=== PATIENT | male | born 1995 | race Caucasian/White ===

== ENCOUNTER 2019-11-25 03:53 | Observation (INO) | payer BC, OTHER ==
[2019-11-25 04:33] LABS: Absolute Neutrophil Ct (ANC) 4.65 (1.4-6.9); BASOPHIL % 0.2 % (0.0-0.4); Basophil (Absolute #) 0.02 (0-0.4); Eosinophil % 2.4 % (0.00-5.0); Eosinophil (Absolute #) 0.21 (0-0.5); Hematocrit 47.1 % (42-50); Hemoglobin 15.6 gm/dl (12.5-18.0); Lymphocyte (Absolute #) 3.11 (1.0-4.6); Lymphocytes % 35.5 % (24.0-44.0); Mean Cell Volume 89.2 fl (78-100); Mean Corpuscular Hemoglobin 29.5 pg (26-32); Mean Corpuscular Hgb Concent. 33.1 g/dl (32-36); Mean Platelet Volume 10.1 fl (7.5-11.0); Monocyte (Absolute #) 0.78 (0.0-1.3); Monocytes % 8.9 % (0.0-12.0); Platelet Count 152 K/mm3 (150-450); Red Blood Count 5.28 M/mm3 (4.1-5.6); Red Cell Distribution Width 13.4 % (11.5-14.0); White Blood Count 8.8 K/mm3 (4.0-10.5)
[2019-11-25 04:43] LABS: ALBUMIN 4.7 g/dL (3.5-5.0); ALKALINE PHOSPHATASE 85 U/L (38-126); ANION GAP 12.6 MEQ/L (5-15); BLOOD UREA NITROGEN 22 mg/dL (9-20); CHLORIDE 105 mmol/L (98-107); Calcium 9.7 mg/dL (8.4-10.2); Carbon Dioxide 27 mmol/L (22-30); Creatinine 1 1.03 mg/dL (0.66-1.25); Glucose 97 mg/dL (74-106); Potassium 3.5 mmol/L (3.5-5.1); SGOT/AST 38 U/L (17-59); SGPT/ALT 67 U/L (0-50); SODIUM 140 mmol/L (137-145); Total Protein 8.3 g/dL (6.3-8.2)
--- NOTE | 2019-11-25 05:34 | ERPHSYRPT ---
- History of Present Illness Time Seen by Provider: 11/25/19 04:07 Source: patient Exam Limitations: no limitations Patient Subjective Stated Complaint: Patient states " numbness started in left lower extremity then worked its way up to his left upper extremity then into left side of my face". Triage Nursing Assessment: Patient arrived to ER and ambulated to room per self with steady gait. Patient transfered self to bed without difficulty. Patient A/ O times 4. Patient able to answer questions appropriatley. Patient speech clear and understandable. No facial droop noted. 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 No drooling noted. Patient able to feel sensation to both feet, bilateral upper and lower extremities, and face. Patient stated he has more of tingling now then numbness. Patient denies SOB and chest pain. Patient does state he has some nausea. Patient denies vomiting. Bilateral hand die try out worker stamping strong and equal. Movement of bilateral lower extremities strong and WNL. Bilateral pupils reactive to light and brisk. Patient able to lift bialteral upper/lower extremities upon command without difficulty. Patient denies any HX of numbness. No drifts noted to upper/lower extremities. Patient with no difficulty with swallowing noted. Patient denies any new pain or discomfort. Physician History: 24 years old generally healthy right hand dominant male working at the [employer] presented in the ER with chief complaint of sudden onset left-sided numbness and tingling around 2:50 AM today while he was at work. It lasted for almost 20 minutes and started initially in the left lower extremity followed by the upper and involving face. Patient reports subjective weakness on the left side as well. After 20 minutes everything started to improve. Later on patient decided to come to the ER and his numbness is gone but has some tingly sensation in the hand and leg. No difficulty speech visual impairment are facial droop reported. Patient also reported having headaches off and on and had taken Pamprin this evening which improved. Denies having similar symptoms in the past. Time of Onset/Last Time Seen Normal: 0250 Timing/Duration: today, sudden, improved Severity: moderate Character of Deficits: altered sensation Deficits: no difficulties Baseline/Normal Cognition: alert 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 Current Cognition: alert 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 Baseline Gait: walks w/o assistance Associated Symptoms: numbness/tingling in legs/feet, paresthesia, headache Allergies/Adverse Reactions: codeine Adverse Reaction (Mild, Verified 11/25/19 04:28) Rash vancomycin Adverse Reaction (Mild, Verified 11/25/19 04:28) Rash Home Medications: No Reportable Medications [No Reported Medications] 11/25/19 [History] Hx Tetanus, Diphtheria Vaccination/Date Given: Yes Hx Influenza Vaccination/Date Given: No Hx Pneumococcal Vaccination/Date Given: No Immunizations Up to Date: Yes Travel Risk - International Travel Have you traveled outside of the country in past 3 weeks: No Have you or anyone close to you been diagnosed with or: No Do your reside in a community with a known COVID-19 case?: Yes If Yes where:: [facility] - Coronavirus Screening Has patient experienced Coronavirus symptoms: No - Review of Systems Constitutional: No Symptoms Eyes: No Symptoms Ears, Nose, & Throat: No Symptoms Respiratory: No Symptoms Cardiac: No Symptoms Abdominal/Gastrointestinal: No Symptoms Genitourinary Symptoms: No Symptoms Musculoskeletal: No Symptoms Skin: No Symptoms Neurological: Sensory Changes Psychological: No Symptoms Endocrine: No Symptoms Hematologic/Lymphatic: No Symptoms Immunological/Allergic: No Symptoms - Past Medical History Neurological History: No Pertinent History ENT History: No Pertinent History Cardiac History: No Pertinent History Respiratory History: No Pertinent History Endocrine Medical History: No Pertinent History Musculoskeletal History: No Pertinent History GI Medical History: No Pertinent History History: No Pertinent History Psycho-Social History: No Pertinent History Male Reproductive Disorders: No Pertinent History - Past Surgical History Past Surgical History: No Neuro Surgical History: No Pertinent History Cardiac: No Pertinent History Respiratory: No Pertinent History Gastrointestinal: No Pertinent History Genitourinary: No Pertinent History Musculoskeletal: No Pertinent History Male Surgical History: No Pertinent History - Social History Smoking Status: Former smoker Exposure to second hand smoke: No Drug Use: none Patient Lives Alone: No - Nursing Vital Signs Nursing Vital Signs: Initial Vital Signs Temperature 99.0 F 11/25/19 04:04 Pulse Rate 94 H 11/25/19 04:04 Respiratory Rate 18 11/25/19 04:04 Blood Pressure 153/89 11/25/19 04:04 O2 Sat by Pulse Oximetry 98 11/25/19 04:04 Pain Scale Pain Intensity 0 - Natalya Coma Scale Best Eye Response ([place]): (4) open spontaneously Best Verbal Response ([place]): (5) oriented Best Motor Response (Natalya): (6) obeys commands [place] Total: 15 - Physical Exam Eye Exam: bilateral eye: normal inspection, PERRL, EOMI Ears, Nose, Throat Exam: normal ENT inspection, TMs normal, pharynx normal, moist mucous membranes Neck Exam: normal inspection, non-tender, supple, full range of motion Respiratory: normal breath sounds, lungs clear Cardiovascular: regular rate/rhythm, normal heart sounds, normal peripheral pulses Gastrointestinal: soft, normal bowel sounds, No tenderness Back Exam: normal inspection, normal range of motion Extremity Exam: normal inspection, normal range of motion Mental Status: alert, 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, cooperative 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 Exam: normal hearing, normal speech, PERRL Coordination/Gait: normal finger to nose, normal gait, normal cerebellar function, negative Romberg's sign Motor/Sensory: no motor deficit DTR: bicep (R): 2+, bicep (L): 2+, knee (R): 2+, knee (L): 2+ Skin Exam: normal color SpO2 Interpretation: normal SpO2: 98 O2 Delivery: Room Air - Course Nursing assessment & vital signs reviewed: Yes EKG Interpreted by Me: RATE, Sinus Rhythm, Right [place] Deviation, Left Bundle Branch Block, Non-specific ST Changes Ordered Tests: Active Orders 24 hr Category Date Time Status Isolation, Initiate & Maintain Q4H Care 11/25/19 04:20 Active CHEST 1 VIEW (PORTABLE) Stat Exams 11/25/19 04:11 Taken HEAD WITHOUT CONTRAST [CT] Stat Exams 11/25/19 04:11 Taken MRI BRAIN W & W/O CONTRAST [MRI] Stat Exams 11/25/19 05:39 Ordered CBC W DIFF Stat Lab 11/25/19 04:15 Completed CMP Stat Lab 11/25/19 04:15 Completed TROPONIN Q3H Lab 11/25/19 04:15 Completed TROPONIN Q3H Lab 11/25/19 07:15 Ordered TROPONIN Q3H Lab 11/25/19 10:15 Ordered TROPONIN Q3H Lab 11/25/19 13:15 Ordered TROPONIN Q3H Lab 11/25/19 16:15 Ordered TROPONIN Q3H Lab 11/25/19 19:15 Ordered TROPONIN Q3H Lab 11/25/19 22:15 Ordered EKG STAT RT 11/25/19 04:53 Active Transfer Order Routine Transfer 11/25/19 Ordered Medication Summary Discontinued Medications Generic Name Dose Route Start Last Admin Trade Name Pallavi PRN Reason Stop Dose Admin Aspirin 324 mg 11/25/19 05:38 11/25/19 05:46 Ecotrin 81 Mg PO 11/25/19 05:39 324 mg 1XONLY ONE Administration Aspirin Confirm 11/25/19 05:45 Baby Aspirin 81 Mg Chew Administered 11/25/19 05:46 Dose 324 mg .ROUTE .STK-MED ONE Lab/Rad Data: Laboratory Result Diagrams 11/25/19 04:15 11/25/19 04:15 Laboratory Results 11/25/19 11/25/19 11/25/19 Range/Units 04:15 04:15 04:15 WBC 8.8 (4.0-10.5) K/mm3 RBC 5.28 (4.1-5.6) M/mm3 Hgb 15.6 (12.5-18.0) gm/dl Hct 47.1 (42-50) % MCV 89.2 (78-100) fl MCH 29.5 (26-32) pg MCHC 33.1 (32-36) g/dl RDW 13.4 (11.5-14.0) % Plt Count 152 (150-450) K/mm3 MPV 10.1 (7.5-11.0) fl Gran % 53.0 (36.0-66.0) % Eos # (Auto) 0.21 (0-0.5) Absolute Lymphs (auto) 3.11 (1.0-4.6) Absolute Monos (auto) 0.78 (0.0-1.3) Lymphocytes % 35.5 (24.0-44.0) % Monocytes % 8.9 (0.0-12.0) % Eosinophils % 2.4 (0.00-5.0) % Basophils % 0.2 (0.0-0.4) % Absolute Granulocytes 4.65 (1.4-6.9) Basophils # 0.02 (0-0.4) Sodium 140 (137-145) mmol/L Potassium 3.5 (3.5-5.1) mmol/L Chloride 105 (98-107) mmol/L Carbon Dioxide 27 (22-30) mmol/L Anion Gap 12.6 (5-15) MEQ/L BUN 22 H (9-20) mg/dL Creatinine 1.03 (0.66-1.25) mg/dL Estimated GFR > 60.0 ML/MIN Glucose 97 (74-106) mg/dL Calcium 9.7 (8.4-10.2) mg/dL Total Bilirubin 0.50 (0.2-1.3) mg/dL AST 38 (17-59) U/L ALT 67 H (0-50) U/L Alkaline Phosphatase 85 (38-126) U/L Troponin I < 0.012 (0.000-0.034) ng/mL Serum Total Protein 8.3 H (6.3-8.2) g/dL Albumin 4.7 (3.5-5.0) g/dL - Progress Progress: improved, re-examined Progress Note: 24 years old is evaluated for left-sided and sudden onset numbness which is much improved now. Patient have some tingling sensation on the left and. No weakness at all. I have obtained CT head which is negative. Grossly unremarkable chemistries and EKG showed normal sinus rhythm with no arrhythmias. I have obtained specialist reservations agent telemetry neurology consult, recommended MRI with and without contrast to rule out stroke or any other causes like multiple sclerosis etc. Patient would be admitted to hospital. Discussed with patient who understand and agrees with it. He is given aspirin. 11/25/19 05:54 11/25/19 06:[address] Bravo and patient is being admitted for observation. Discussed with : Joshua Will see patient in: hospital (observation) Counseled pt/family regarding: lab results, diagnosis, rad results - Departure Departure Disposition: Observation Clinical Impression: Numbness on left side Condition: Stable Critical Care Time: No Referrals: DOCTOR,NO FAMILY [Primary Care Provider] -
[2019-11-25] MEDS ORDERED: ECOTRIN 81 MG PO ONE (05:38)
[2019-11-25] MEDS ORDERED: BABY ASPIRIN 81 MG CHEW ONE (05:45)
--- NOTE | 2019-11-25 08:14 | XRAY ---
Indication: Facial and extremity numbness. Comparison: November 14, 2019. Portable chest again demonstrates normal heart and lungs with incidental calcified granulomas. No new/acute findings.
--- NOTE | 2019-11-25 08:16 | XRAY ---
Indication: Headache and nausea. Left face and left extremity numbness/tingling. Multiple contiguous axial images obtained through the head without contrast. Comparison: None Normal appearing brain parenchyma, ventricles, and bony calvarium. Visualized paranasal sinuses and mastoid air cells are clear. Impression: Normal CT head without contrast exam. Comment: Preliminary interpretation was made by [facility]. No critical discrepancy.
--- NOTE | 2019-11-25 08:31 | XRAY ---
Indication: Left-sided numbness. Sagittal, coronal, and axial MRI brain was performed using pre-and post T1, T2, FLAIR, diffusion, and ADC sequences. 20 cc Dotarem contrast used. Comparison: None Ventriculosulcal pattern appears symmetric. No acute intracranial hemorrhage, abnormal extra-axial fluid collection, or mass effect. Diffusion images negative for restricted signal. Following gadolinium, there is no abnormal enhancing intra or extra-axial mass. Fourth ventricle is midline without hydrocephalus. 7/8 cranial nerve complex bilaterally symmetric. Normal flow void signal within the major intracerebral circulation. Normal appearing craniocervical junction and sella turcica. Moderate right maxillary and mild left maxillary sinus mucosal thickening. Impression: Bilaterally maxillary sinus disease. Remaining MRI brain with contrast exam is negative.
[2019-11-25 09:13] VITALS: O2SAT 97
--- NOTE | 2019-11-25 09:31 | PCM.HP ---
History of Present Illness - Chief Complaint Chief Complaint: left sided numbness History of Present Illness: is a 24 year old male, healthy, who came to ER c/o L sided numbness and weakness. It started just before 3 am (pt works at [employer], at the [employer]) with numbness in his L leg, which traveled up to his chest (with chest tightness ) and L arm then his face. He felt he had a facial droop, but no trouble speaking. The leg felt weak and he had trouble using his L hand. This lasted until about 4 am, by which time he was in the ER. Currently he feels "fine." Teleneurology consult was done and they recommended MRI brain with and without gadolinium, which was negative for CVA. They also recommended swallow study, fasting lipids, and telemetry. We will rule out CO as well. His maternal grandfather had an CO, otherwise FHx is neg. He does chew Tobacco daily, taking about 1 week to use 1 can. He smokes occasionally. Drinks when he is not working, usually beer but may have a drink of whiskey occasionally. Denies any drug use. - Review of Systems Constitutional: Weakness Respiratory: Cough (cough and SOB about 1 mo, tested neg for COVID and neg resp panel per pt, neg CXR x 2, and now these sx are improved), Short Of Breath Neurological: Dizziness (during episode this morning), Focal Weakness, Parasthesia Psychological: No Anxiety, No Depression, No Suicidal Ideations, No Homicidal Ideations All Other Systems: Reviewed and Negative Medications & Allergies Home Medications: Home Medication List No Reportable Medications [No Reported Medications] 11/25/19 [History Confirmed 11/25/19] Allergies/Adverse Reactions: Allergies Allergy/AdvReac Type Severity Reaction Status Date / Time codeine AdvReac Mild Rash Verified 11/25/19 04:28 vancomycin AdvReac Mild Rash Verified 11/25/19 04:28 - Past Medical History Neurological History: No Pertinent History ENT History: No Pertinent History Cardiac History: No Pertinent History Respiratory History: No Pertinent History Endocrine Medical History: No Pertinent History Musculoskelatal History: No Pertinent History GI Medical History: No Pertinent History History: No Pertinent History Pyscho-Social History: No Pertinent History Male Reproductive Disorders: No Pertinent History - Past Surgical History Past Surgical History: No Neuro Surgical History: No Pertinent History Cardiac History: No Pertinent History Respiratory Surgery: No Pertinent History GI Surgical History: No Pertinent History Genitourinary Surgical Hx: No Pertinent History Musculskeletal Surgical Hx: No Pertinent History Male Surgical History: No Pertinent History - Social History Smoking Status: Former smoker Exposure to second hand smoke: No Alcohol: Weekly Drug Use: none - Physical Exam Vital Signs: Vital Signs - 24 hr Temp Pulse Resp BP Pulse Ox 11/25/19 09:03 97 11/25/19 07:07 78 16 126/84 98 11/25/19 06:39 98 11/25/19 06:18 85 17 111/86 97 11/25/19 05:07 75 18 127/84 98 11/25/19 04:04 99.0 F 94 H 18 153/89 98 General Appearance: no apparent distress, alert Neurologic Exam: 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, cooperative, heel seat trimmer II-XII nml as tested, other (LE sensation intact to light touch bilat, throughout. good dorsiflexion and plantar flexion. 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.) Eye Exam: PERRL/EOMI, eyes nml inspection, No scleral icterus Ears, Nose, Throat Exam: pharynx normal, moist mucous membranes, No pharyngeal erythema Neck Exam: normal inspection, non-tender, No lymphadenopathy Respiratory Exam: normal breath sounds, lungs clear, No crackles/rales, No rhonchi, No wheezing Cardiovascular Exam: regular rate/rhythm, normal heart sounds, No murmur Gastrointestinal/Abdomen Exam: soft, normal bowel sounds Back Exam: normal inspection, No rash Extremity Exam: normal inspection, No pedal edema, No swelling Skin Exam: normal color, warm, dry, No rash Results - Labs Lab/Micro Results: Lab Results-Last 24 Hours 11/25/19 11/25/19 11/25/19 Range/Units 04:15 04:15 04:15 WBC 8.8 (4.0-10.5) K/mm3 RBC 5.28 (4.1-5.6) M/mm3 Hgb 15.6 (12.5-18.0) gm/dl Hct 47.1 (42-50) % MCV 89.2 (78-100) fl MCH 29.5 (26-32) pg MCHC 33.1 (32-36) g/dl RDW 13.4 (11.5-14.0) % Plt Count 152 (150-450) K/mm3 MPV 10.1 (7.5-11.0) fl Gran % 53.0 (36.0-66.0) % Eos # (Auto) 0.21 (0-0.5) Absolute Lymphs (auto) 3.11 (1.0-4.6) Absolute Monos (auto) 0.78 (0.0-1.3) Lymphocytes % 35.5 (24.0-44.0) % Monocytes % 8.9 (0.0-12.0) % Eosinophils % 2.4 (0.00-5.0) % Basophils % 0.2 (0.0-0.4) % Absolute Granulocytes 4.65 (1.4-6.9) Basophils # 0.02 (0-0.4) Sodium 140 (137-145) mmol/L Potassium 3.5 (3.5-5.1) mmol/L Chloride 105 (98-107) mmol/L Carbon Dioxide 27 (22-30) mmol/L Anion Gap 12.6 (5-15) MEQ/L BUN 22 H (9-20) mg/dL Creatinine 1.03 (0.66-1.25) mg/dL Estimated GFR > 60.0 ML/MIN Glucose 97 (74-106) mg/dL Calcium 9.7 (8.4-10.2) mg/dL Total Bilirubin 0.50 (0.2-1.3) mg/dL AST 38 (17-59) U/L ALT 67 H (0-50) U/L Alkaline Phosphatase 85 (38-126) U/L Troponin I < 0.012 (0.000-0.034) ng/mL Serum Total Protein 8.3 H (6.3-8.2) g/dL Albumin 4.7 (3.5-5.0) g/dL - Radiology Impressions Radiology Exams & Impressions: Radiology Procedures Category Date Time Status CHEST 1 VIEW (PORTABLE) Stat Exams 11/25/19 04:11 Completed HEAD WITHOUT CONTRAST [CT] Stat Exams 11/25/19 04:11 Completed MRI BRAIN W & W/O CONTRAST [MRI] Stat Exams 11/25/19 05:39 Completed Assessment/Plan (1) Numbness on left side Current Visit: Yes Status: Acute Assessment & Plan: Unsure the etiology. MRI was neg for CVA, but will go ahead with swallow study as he had some sx of mouth droop initially. Will check fasting lipids and keep pt on telemetry while here. 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 Code(s): R20.0 - ANESTHESIA OF SKIN (2) Chest pain Current Visit: Yes Status: Acute Qualifiers: Chest pain type: other chest pain Qualified Code(s): R07.89 - Other chest pain; R07.8 - Other chest pain Assessment & Plan: unlikely to be cardiac but will rule out with troponins. Code(s): R07.9 - CHEST PAIN, UNSPECIFIED
[2019-11-25] MEDS ORDERED: ENOXAPARIN SODIUM SQ SCH (10:00)
[2019-11-25 10:07] LABS: Risk Ratio 6.8
--- NOTE | 2019-11-25 13:16 | XRAY ---
Indication: Dysphasia. Modified barium swallow study was performed by the Department of speech therapy with fluoroscopic assistance provided. Patient ingested multiple consistencies of liquids and solids. Full report and recommendations will be reported separately. Approximately 36 seconds fluoroscopy used.
[2019-11-25 16:19] VITALS: BP 114/65; PULSE 75
== END 2019-11-25 16:36 | disposition home or self-care (01) ==
LOC: ED 03:53 → MED SURG 08:47
PROVIDERS: ADMIT Family Medicine; ATTEND Family Medicine
DX: R20.0 Anesthesia of skin (principal); R07.9 Chest pain, unspecified; R53.1 Weakness; R42 Dizziness and giddiness
CPT/HCPCS: 36000; 36415; 70450; 70553; 71045; 74230; 80053; 80061; 83721; 84484; 85025; 93268; 99285; J1650; Q3014; A9270-GY; G0378

== ENCOUNTER 2019-12-02 00:23 | Emergency (ER) | payer BC ==
[2019-12-02] MEDS ORDERED: TORAdol 30 mg Injection IV ONE (00:58)
[2019-12-02] MEDS ORDERED: Compazine 10 MG/2 ML IV ONE (00:59)
[2019-12-02] MEDS ORDERED: BENADRYL 50 MG/ML IV ONE (01:00)
[2019-12-02] MEDS ORDERED: BENADRYL 50 MG/ML ONE (01:03)
[2019-12-02] MEDS ORDERED: TORAdol 30 mg Injection ONE (01:03)
[2019-12-02] MEDS ORDERED: Compazine 10 MG/2 ML ONE (01:03)
--- NOTE | 2019-12-02 01:05 | ERPHSYRPT ---
- History of Present Illness Time Seen by Provider: 12/02/19 00:39 Source: patient Exam Limitations: no limitations Patient Subjective Stated Complaint: pt states he has had a headache for over a week. states he has been seen here and at [facility] with little improvement Triage Nursing Assessment: pt alert and oriented, answers questions approp. pt ambulatory with steady gait to room noted. respirations nonlabored with lungs cta. skin warm and dry. no facial droop noted. bilat upper and lower ext strength equal and wnl. Physician History: 24 yo wm w L frontal WOOD x 8days. Pt has been worked up/admitted at [facility] for same complaint w neg CT head/neg MRI brain/full neuro consult. He has also be seen in ER at [facility] for same complaint. Pain is 10 on scale/throbbing/worse w bright lights. He has had N/V but denies fever/focal weakness/chest pain/dyspnea /trauma. Timing/Duration: other (8 days) Quality: other (throbbing) Head Pain Location: frontal Severity of Pain-Max: severe Severity of Pain-Current: severe Recent Head Trauma: no recent headache/trauma, occasional headaches Modifying Factors: Improves With: exposure to light Associated Symptoms: nausea/vomiting, sensitive to light, No denies symptoms, No confusion, No dizziness, No fatigue, No facial pain, No fever/chills, No flushing, No light-headedness, No loss of consciousness, No nasal congestion, No nasal drainage, No neck pain, No numbness in legs/feet, No rash, No sweating , No scotoma, No seizures, No sinus infection, No speech problems, No stiff neck , No trouble walking, No vision changes, No visual disturbance, No weakness Previous symptoms: same symptoms as today, recent hospitalization Allergies/Adverse Reactions: codeine Adverse Reaction (Mild, Verified 11/25/19 04:28) Rash vancomycin Adverse Reaction (Mild, Verified 11/25/19 04:28) Rash Home Medications: Cyclobenzaprine HCl [Flexeril] 10 mg PO Q8HPRN PRN 12/02/19 [History] Methylprednisolone 4 mg [Medrol 4 mg] 4 mg PO UD 12/02/19 [History] Hx Tetanus, Diphtheria Vaccination/Date Given: Yes Hx Influenza Vaccination/Date Given: No Hx Pneumococcal Vaccination/Date Given: No Immunizations Up to Date: Yes Travel Risk - International Travel If Yes where:: [place] - Coronavirus Screening Has patient experienced Coronavirus symptoms: Yes Symptoms experienced: severe headache - Review of Systems Constitutional: No Symptoms Eyes: Photophobia, No Discharge, No Eye Pain, No Eye Redness, No Itchy, No Tearing, No Vision Changes, No Double Vision, No Foreign Body Sensation Ears, Nose, & Throat: No Symptoms Respiratory: No Symptoms Cardiac: No Symptoms Abdominal/Gastrointestinal: No Symptoms Genitourinary Symptoms: No Symptoms Musculoskeletal: No Symptoms Skin: No Symptoms Neurological: Headache, No Dizziness, No Focal Weakness, No Gait Changes, No Irritability, No Lethargy, No Paralysis, No Parasthesia, No Seizure, No Sensory Changes, No Speech Changes, No Tics, No Tremors, No Vertigo Psychological: No Symptoms Endocrine: No Symptoms Hematologic/Lymphatic: No Symptoms Immunological/Allergic: No Symptoms - Past Medical History Pertinent Past Medical History: No Neurological History: No Pertinent History ENT History: No Pertinent History Cardiac History: No Pertinent History Respiratory History: No Pertinent History Endocrine Medical History: No Pertinent History Musculoskeletal History: No Pertinent History GI Medical History: No Pertinent History History: No Pertinent History Psycho-Social History: No Pertinent History Male Reproductive Disorders: No Pertinent History - Past Surgical History Past Surgical History: Yes Neuro Surgical History: No Pertinent History Cardiac: No Pertinent History Respiratory: No Pertinent History Gastrointestinal: No Pertinent History Genitourinary: No Pertinent History Musculoskeletal: No Pertinent History Male Surgical History: No Pertinent History Other Surgical History: grastroescesis - Social History Smoking Status: Former smoker Exposure to second hand smoke: No Drug Use: none Patient Lives Alone: No Significant Family History: no pertinent family hx - Nursing Vital Signs Nursing Vital Signs: Initial Vital Signs Pulse Rate 91 H 12/02/19 00:32 Respiratory Rate 18 12/02/19 00:32 Blood Pressure 147/106 12/02/19 00:32 O2 Sat by Pulse Oximetry 100 12/02/19 00:32 Pain Scale Pain Intensity 6 - Physical Exam General Appearance: no apparent distress, other (In pain) Eye Exam: PERRL/EOMI, eyes nml inspection, photophobia Ears, Nose, Throat Exam: normal ENT inspection, TMs normal, pharynx normal, moist mucous membranes Neck Exam: normal inspection, non-tender, supple, full range of motion, No meningismus, No mass, No Brudzinski, No Kernig's, No carotid bruit, No JVD Respiratory Exam: normal breath sounds, lungs clear, airway intact, No respiratory distress Cardiovascular Exam: regular rate/rhythm, No murmur, No friction rub, No gallop , No tachycardia Gastrointestinal/Abdominal Exam: soft, normal bowel sounds, No tenderness Back Exam: normal inspection, normal range of motion, No CVA tenderness Extremity Exam: normal inspection, normal range of motion 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, 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, 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: normal hearing, normal speech, PERRL Coordination/Gait Exam: normal finger to nose, normal cerebellar function Motor/Sensory Exam: no motor deficit, no sensory deficit, no pronator drift, negative Babinski's sign DTR Exam: bicep (R): 2+, bicep (L): 2+, tricep (R): 2+, tricep (L): 2+, knee (R) : 2+, knee (L): 2+ Skin Exam: normal color, warm, dry Lymphatic Exam: No adenopathy SpO2 Interpretation: normal SpO2: 100 O2 Delivery: Room Air - Course Nursing assessment & vital signs reviewed: Yes Ordered Tests: Active Orders 24 hr Category Date Time Status Isolation, Initiate & Maintain Q12H Care 12/02/19 00:49 Active Medication Summary Discontinued Medications Generic Name Dose Route Start Last Admin Trade Name Bartq PRN Reason Stop Dose Admin Diphenhydramine HCl 25 mg 12/02/19 01:00 12/02/19 01:08 Benadryl 50 Mg/Ml IV 12/02/19 01:01 25 mg STAT ONE Administration Diphenhydramine HCl Confirm 12/02/19 01:03 Benadryl 50 Mg/Ml Administered 12/02/19 01:04 Dose 50 mg .ROUTE .STK-MED ONE Ketorolac Tromethamine 15 mg 12/02/19 00:58 12/02/19 01:07 Toradol 30 Mg Injection IV 12/02/19 00:59 15 mg STAT ONE Administration Ketorolac Tromethamine Confirm 12/02/19 01:03 Toradol 30 Mg Injection Administered 12/02/19 01:04 Dose 30 mg .ROUTE .STK-MED ONE Prochlorperazine Edisylate 10 mg 12/02/19 00:59 12/02/19 01:08 Compazine 10 Mg/2 Ml IV 12/02/19 01:00 10 mg STAT ONE Administration Prochlorperazine Edisylate Confirm 12/02/19 01:03 Compazine 10 Mg/2 Ml Administered 12/02/19 01:04 Dose 10 mg .ROUTE .STK-MED ONE - Progress Progress Note: 12/02/19 01:09 15mg IV toradol/25mg IV benadryl/10mg IV compazine 12/02/19 01:25 Pt's pain improved after IV toradol/benadryl/compazine. Chart reviewed-CT head neg/MRI brain w maxillary mucosal thickening B 12/02/19 01:40 Pt's pain greatly improved. Blood Culture(s) Obtained: No Antibiotics given: No - Departure Departure Disposition: Home Clinical Impression: Migraine Condition: Stable Critical Care Time: No Referrals: DOCTOR,NO FAMILY [Primary Care Provider] - Additional Instructions: Follow up with your family MD or neurologist next week Return to Er for increasing pain/focal weakness/temperature greater than 100.5
[2019-12-02 01:43] VITALS: O2SAT 100
[2019-12-02 01:48] VITALS: BP 136/87; PULSE 61
== END 2019-12-02 01:54 | disposition home or self-care (01) ==
LOC: ED 00:23
DX: G43.909 Migraine, unspecified, not intractable, without status migrainosus (principal)
CPT/HCPCS: 36000; 96374; 96375; 99284; J1200; J1885

== ENCOUNTER 2019-12-02 10:22 | Observation (INO) | payer BC ==
[2019-12-02] MEDS ORDERED: Norco 10/325 MG Tablet PO PRN (11:21)
[2019-12-02] MEDS ORDERED: MORPHINE SULFATE 10 MG/ML IV PRN (11:21)
[2019-12-02] MEDS ORDERED: Zofran 4 MG/2 ML VIAL IV PRN (11:22)
[2019-12-02 11:56] LABS: Absolute Neutrophil Ct (ANC) 5.54 (1.4-6.9); BASOPHIL % 0.2 % (0.0-0.4); Basophil (Absolute #) 0.02 (0-0.4); Eosinophil % 0.8 % (0.00-5.0); Eosinophil (Absolute #) 0.08 (0-0.5); Hematocrit 47.3 % (42-50); Hemoglobin 15.6 gm/dl (12.5-18.0); Lymphocyte (Absolute #) 3.23 (1.0-4.6); Lymphocytes % 32.8 % (24.0-44.0); Mean Cell Volume 88.4 fl (78-100); Mean Corpuscular Hemoglobin 29.2 pg (26-32); Monocyte (Absolute #) 0.98 (0.0-1.3); Monocytes % 9.9 % (0.0-12.0); Neutrophil % 56.3 % (36.0-66.0); Platelet Count 190 K/mm3 (150-450); Red Blood Count 5.35 M/mm3 (4.1-5.6); Red Cell Distribution Width 13.7 % (11.5-14.0); White Blood Count 9.9 K/mm3 (4.0-10.5)
[2019-12-02] MEDS ORDERED: Sodium Chloride 0.9% 1000 ML 1,000 ML IV SCH (12:15)
[2019-12-02 12:48] LABS: CSF GLUCOSE 60 mg/dL (40-70); CSF PROTEIN 99 mg/dL (12-60)
[2019-12-02 13:12] LABS: ALBUMIN 4.5 g/dL (3.5-5.0); ALKALINE PHOSPHATASE 68 U/L (38-126); ANION GAP 12.6 MEQ/L (5-15); BLOOD UREA NITROGEN 15 mg/dL (9-20); CHLORIDE 107 mmol/L (98-107); Calcium 9.4 mg/dL (8.4-10.2); Carbon Dioxide 27 mmol/L (22-30); Folate (Folic Acid) 7.95 ng/mL (2.76 - >20); Glucose 95 mg/dL (74-106); Potassium 4.1 mmol/L (3.5-5.1); SGOT/AST 21 U/L (17-59); SGPT/ALT 28 U/L (0-50); SODIUM 143 mmol/L (137-145); Total Protein 7.9 g/dL (6.3-8.2); Vitamin B12 342 pg/mL (239-931)
[2019-12-02 13:40] LABS: CSF CLARITY CLEAR; CSF COLOR COLORLESS; CSF RBCS 29 CU. MM (0-2); CSF WBCS 207 CU. MM (0-6)
--- NOTE | 2019-12-02 14:32 | XRAY ---
Indication: Headache and paresthesia. Two-dimensional sonogram and color Doppler imaging of the carotid arteries of the neck performed. Comparison: None Examination of the right neck demonstrates visualized common carotid, bulb, internal carotid, and external carotid arteries to be widely patent. PSV of the CCA is 117 cm/s. PSV of the ICA is 100 cm/s. ICA/CCA ratio is 0.8. Normal antegrade vertebral artery flow. Examination of the left neck also demonstrates widely patent common carotid, bulb, internal carotid, and external carotid arteries. PSV of the CCA is 117 cm/s. PSV of the ICA is 10 4 cm/s. ICA/CCA ratio is 0.9. Normal antegrade vertebral artery flow. Impression: Carotid arteries of the neck widely patent bilaterally. Velocity measurements and ratios are also negative for hemodynamically significant flow-limiting stenosis.
[2019-12-02 14:41] LABS: Appearance CLEAR (CLEAR); Bilirubin NEGATIVE (NEGATIVE); Blood NEGATIVE Ery/ul (0-5); Glucose NEGATIVE (NEGATIVE); Ketones NEGATIVE (NEGATIVE); Leukocyte Esterase NEGATIVE (NEGATIVE); Mucus SLIGHT /HPF (NEGATIVE); Nitrite NEGATIVE (NEGATIVE); Protein,Urine Dip NEGATIVE (Negative); RBC 0-2 /HPF (0-2); Specific Gravity 1.031 (1.005-1.025); Urobilinogen 2 mg/dL (0-1)
[2019-12-02 14:50] LABS: CSF LYMPHS 97 % (40-80); CSF MONOS 2 % (15-45)
[2019-12-02 14:51] LABS: CSF NEUTROPHIL 1 % (0-6)
[2019-12-02] MEDS ORDERED: ROCEPHIN 1 Gm-D5w 50 ml Bag** 1 G/50 ML IVPB IV SCH (22:00)
[2019-12-02] MEDS: DEXTROSE IV SCH ×2 (22:30→23:16)
[2019-12-02] MEDS: WATER IV SCH ×2 (22:30→23:16)
[2019-12-02] MEDS: ZOVIRAX IV SCH ×2 (22:30→23:16)
[2019-12-02] MEDS ORDERED: Zovirax INJ IV SCH (23:00)
[2019-12-03] MEDS: DEXTROSE IV SCH ×3 (07:19→21:24)
[2019-12-03] MEDS: ZOVIRAX IV SCH ×3 (07:19→21:24)
[2019-12-03] MEDS: WATER IV SCH ×3 (07:19→21:24)
[2019-12-03 11:21] LABS: C-Reactive Protein High Sens. 3.42 mg/L (0.00-3.00)
--- NOTE | 2019-12-03 11:33 | XRAY ---
Indication: Right-sided headache and left-sided numbness. Sagittal, coronal, and axial MRI brain was performed using pre and post T1, T2, FLAIR, diffusion, and ADC sequences. 20 cc Dotarem contrast used. Comparison: November 25, 2019. Again no acute intracranial hemorrhage, abnormal extra-axial fluid collection, or mass effect. Diffusion images remain negative for restricted signal. Following gadolinium, there is again no abnormal enhancing intra or extra-axial mass. Fourth ventricle is midline without hydrocephalus. 7/8 cranial nerve complex bilaterally symmetric. Normal flow void signal within the major intracerebral circulation. Normal craniocervical junction and sella turcica. Stable maxillary sinus mucosal thickening again right greater than left. Impression: Continued negative MRI brain with contrast exam again with incidental paranasal sinus disease.
[2019-12-03] MEDS ORDERED: ROCEPHIN 1 Gm-D5w 50 ml Bag** 1 G/50 ML IVPB IV SCH (22:00)
--- NOTE | 2019-12-03 22:02 | PCM.HP ---
History of Present Illness - Chief Complaint Chief Complaint: heachache, paresthesias Date: 12/03/19 History of Present Illness: is a 24 year old male that was direct admitted to hospital for evaluation of headache and parasthesias. Patient reports that about a week ago he started having headaches, photophobia, parasthesias and heavy feeling in his extremities. Patient reports that he was running a low grade fever at times. He was tested twice for covid and found to be negative. Patient reports that he has not had any of these symptoms prior to a week ago. He reports that since he was admitted to the hospital and started on oxygen his headache has gone away. Patient reports that he does feel somewhat better but still feels that his extremities feel heavy. Patient denies any nausea or vomiting abdominal pain SOB chest pain or cough. Patient denies any other reported symptoms. Patient takes no medications. - Review of Systems All Other Systems: Reviewed and Negative (Except what was listed in HPI) Medications & Allergies Home Medications: Home Medication List Acyclovir 400 mg PO TID 10 Days #30 tablet 12/04/19 [Rx] Cefdinir 300 mg PO 12 9 Days #18 capsule 12/04/19 [Rx] Allergies/Adverse Reactions: Allergies Allergy/AdvReac Type Severity Reaction Status Date / Time codeine AdvReac Mild Rash Verified 11/25/19 04:28 vancomycin AdvReac Mild Rash Verified 11/25/19 04:28 - Past Medical History Past Medical History: No Neurological History: No Pertinent History ENT History: No Pertinent History Cardiac History: No Pertinent History Respiratory History: No Pertinent History Endocrine Medical History: No Pertinent History Musculoskelatal History: No Pertinent History GI Medical History: Other History: No Pertinent History Pyscho-Social History: No Pertinent History Male Reproductive Disorders: No Pertinent History 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 - Past Surgical History Past Surgical History: Yes Neuro Surgical History: No Pertinent History Cardiac History: No Pertinent History Respiratory Surgery: No Pertinent History GI Surgical History: Other Genitourinary Surgical Hx: No Pertinent History Musculskeletal Surgical Hx: No Pertinent History Male Surgical History: No Pertinent History Other Surgical History: put intestine in abdomen, also another surgery to remove scar tissue - Social History Smoking Status: Former smoker How long have you smoked: 2 years Exposure to second hand smoke: Yes Alcohol: None Drug Use: none Significant Family History: no pertinent family hx - Physical Exam Vital Signs: Vital Signs - 24 hr Temp Pulse Resp BP Pulse Ox 12/03/19 16:00 98.2 F 103 H 16 126/87 96 12/03/19 12:00 96.6 F 65 18 126/82 98 12/03/19 08:00 96.2 F 79 16 115/65 96 12/03/19 04:00 97.0 F 84 18 134/84 94 L 12/02/19 23:51 97.7 F 76 16 125/73 96 General Appearance: other (Patient was in a dark room resting with the lights off.) Neurologic Exam: alert, 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, 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, 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, normal mood/affect, No motor deficits, No uncooperative, No motor weakness, No facial droop, No slurred speech Eye Exam: eyes nml inspection Ears, Nose, Throat Exam: moist mucous membranes Neck Exam: other (Pain with flexion), No Brudzinski, No Kernig's Respiratory Exam: normal breath sounds, No lungs clear, No respiratory distress , No diminished breath sounds, No crackles/rales, No rhonchi, No wheezing Cardiovascular Exam: regular rate/rhythm, normal heart sounds, No murmur, No friction rub, No gallop, No tachycardia, No bradycardia, No irregular Gastrointestinal/Abdomen Exam: soft, normal bowel sounds, No tenderness, No distention Rectal Exam: deferred Extremity Exam: normal inspection Skin Exam: normal color, warm, dry, No rash Results - Labs Lab/Micro Results: Lab Results-Last 24 Hours 12/02/19 12/02/19 Range/Units 05:10 11:51 ESR 2 (0-15) mm/hr C-React Prot High Sens 3.42 H (0.00-3.00) mg/L RPR w/Rflx to Titer Pending Microbiology 12/02/19 12:28 Gram Stain - Final Cerebral Spinal Fluid CSF Culture - Preliminary NO GROWTH TO DATE 12/02/19 13:59 Urine Culture - Preliminary Urine, Void NO GROWTH TO DATE - Radiology Impressions Radiology Exams & Impressions: Radiology Procedures Category Date Time Status CAROTID BILATERAL [US] Routine Exams 12/02/19 11:16 Completed MRI BRAIN W & W/O CONTRAST [MRI] Routine Exams 12/03/19 10:33 Completed Assessment/Plan (1) Aseptic meningitis Status: Acute Assessment & Plan: CSF indicated patient had a viral meningitis. Neuro consult recommended MRI to re-evaluate sinuses for possible abscess development, mosquito borne illness panel, HIV and to start patient on acyclovir. Patient was placed in droplet precautions. There is no clear etiology as to the cause will await rest of CSF results and address as necessary Code(s): G03.0 - NONPYOGENIC MENINGITIS (2) Migraine Status: Acute Assessment & Plan: Patient's migraine symptoms had mostly resolved. The headache improved after oxygen. Patient was still mildly sensitive to light. Will continue to monitor for symptoms and treat if necessary Code(s): G43.909 - MIGRAINE, UNSP, NOT INTRACTABLE, WITHOUT STATUS MIGRAINOSUS (3) Numbness on left side Status: Acute Code(s): R20.0 - ANESTHESIA OF SKIN (4) Sinus infection Status: Acute Assessment & Plan: Will start on antibiotics for sinusitis Code(s): J32.9 - CHRONIC SINUSITIS, UNSPECIFIED
[2019-12-04] MEDS: ZOVIRAX IV SCH (06:06)
[2019-12-04] MEDS: DEXTROSE IV SCH (06:06)
[2019-12-04] MEDS: WATER IV SCH (06:06)
[2019-12-04 07:43] VITALS: O2SAT 97
[2019-12-04 11:14] LABS: RPR Screen Non Reactive (Non Reactive)
--- NOTE | 2019-12-04 13:58 | PCM.DS ---
Discharge Summary Date of Admission: 12/02/19 11:16 Date of Discharge: 12/04/19 Admitting Physician: LIZZETH OLGUIN Consults: Consults on Case 12/02/19 11:31 Consult Neurology ROUTINE Primary Care Provider: LIZZETH OLGUIN Allergies Allergies codeine Adverse Reaction (Mild, Verified 11/25/19 04:28) Rash vancomycin Adverse Reaction (Mild, Verified 11/25/19 04:28) Rash Hospital Summary - Hospital Course Hospital Course: 24 year old male was direct admitted to hospital due to WOOD, parasthesias and not feeling well. Patient had been evaluated at the ER x2 and admitted to the hospital once before but all of his imaging and labs had been negative for any specific pathology. Patient was admitted to the med/surg unit and LP was ordered and performed. Routine labs were collected. MRI performed neuro consult performed and patient was placed on oxygen for his WOOD. Patient was found to have an aseptic meningitis via CSF. He was noted to have a sinus infection on initial MRI and neurologist recommended repeat MRI to make sure there was not any abscess that formed. Patient did initially report symptoms of limb heaviness and had a WOOD the first day but following oxygen treatment he no longer had any other HAs. Patient also has had other symptom improvement including photophobia and limb heaviness. Patient feels better and would like to go home. Additional labs were ordered per Neurologist's recs and will continue to address results as necessary. Neurology recommended tx with acyclovir and patient was started on that in the hospital. We will transition to PO form. Patient was started on antibiotics for sinus infection and we will continue those outpatient to complete the course. Patient will be able to take Tylenol and Motrin for WOOD. Patient can follow up in clinic next week but was instructed that if his symptoms return he should go to ER. - Vitals & Intake/Output Vital Signs: Vital Signs Temperature 96.6 F 12/04/19 08:00 Pulse Rate 83 12/04/19 08:00 Respiratory Rate 16 12/04/19 08:00 Blood Pressure 132/71 12/04/19 08:00 O2 Sat by Pulse Oximetry 97 12/04/19 08:00 Intake & Output: Intake & Output 12/02/19 12/03/19 12/04/19 12/05/19 11:59 11:59 11:59 11:59 Intake Total 2520 1385 Output Total 500 Balance 2019 138 Weight 121.1 kg - Lab Result Diagrams: 12/02/19 11:51 12/02/19 11:51 Lab Results-Last 24 Hrs: Lab Results-Last 24 Hours 12/02/19 12/02/19 Range/Units 05:10 11:51 RPR w/Rflx to Titer Non Reactive (Non Reactive) HIV Ag/Ab Interpret See Result Note: HIV 1&2 Antigen & Ab Non Reactive (Non Reactive) Micro Results-Entire Visit: Microbiology 12/02/19 12:28 Gram Stain - Final Cerebral Spinal Fluid CSF Culture - Preliminary NO GROWTH TO DATE 12/02/19 13:59 Urine Culture - Preliminary Urine, Void NO GROWTH TO DATE - Radiology Exams Ordered Rad Exams-Entire Visit: Radiology Procedures Category Date Time Status MRI BRAIN W & W/O CONTRAST [MRI] Routine Exams 12/03/19 10:33 Completed - Procedures and Test Procedures and Tests throughout Hospitalization: Therapy Orders & Screens 12/02/19 11:16 EEG 41-60 Minutes (Normal) ONCE Comment: Reason For Exam: headache, paresthesias Diagnosis: heachache, paresthesias 12/02/19 13:33 Oxygen Oxymask LPM 10 lpm Comment: o2 for 30min for headache Diagnosis: heachache, paresthesias 12/02/19 18:38 EKG ROUTINE Comment: Diagnosis: heachache, paresthesias Discharge Exam General Appearance: no apparent distress Neurologic Exam: alert, 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, cooperative, normal mood/affect, No disoriented, No depressed mood/affect, No slurred speech, No aphasia, No dysarthria Eye Exam: eyes nml inspection, No scleral icterus Ears, Nose, Throat Exam: moist mucous membranes Neck Exam: normal inspection Respiratory Exam: normal breath sounds, lungs clear, No respiratory distress, No diminished breath sounds, No accessory muscle use, No wheezing Cardiovascular Exam: regular rate/rhythm, normal heart sounds, No murmur, No friction rub, No gallop, No tachycardia Gastrointestinal/Abdomen Exam: soft, normal bowel sounds, No tenderness Male Genitalia Exam: deferred Rectal Exam: deferred Extremity Exam: normal inspection, No paralysis Final Diagnosis/Problem List - Final Discharge Diagnosis/Problem (1) Aseptic meningitis Current Visit: Yes Status: Acute Assessment & Plan: Patient's LP indicated viral meningitis. Patient was started on acyclovir per neuro recs. Will continue this tx for 10 days and patient will be transitioned to PO. Patient denies any of his original symptoms including WOOD and limb heaviness and parasthesias. Plan for DC today. Will have patient follow up in clinic but if he develops symptoms again or they are worsening he was instructed to go to ER. Code(s): G03.0 - NONPYOGENIC MENINGITIS (2) Sinus infection Current Visit: Yes Status: Acute Assessment & Plan: MRI x2 showed paranasal sinus disease. Will continue on antibiotics for sinus infection Code(s): J32.9 - CHRONIC SINUSITIS, UNSPECIFIED (3) Migraine Current Visit: No Status: Acute Assessment & Plan: Migraine could have been related to aseptic meningitis or traditional migraine or cluster headache. More inclined to attribute to aseptic meningitis due to no reported previous hx of migraines and the symptom improvement over the past couple of days. Patient denies any headaches since Monday. He denies anymore photophobia. Will continue to monitor for headaches as an outpatient and treat for migraine headaches if necessary. Code(s): G43.909 - MIGRAINE, UNSP, NOT INTRACTABLE, WITHOUT STATUS MIGRAINOSUS (4) Numbness on left side Current Visit: No Status: Acute Assessment & Plan: Present prior to admission but patient reports it has resolved. Again likely a symptom related to his aseptic meningitis. Patient had imaging including CT, MRI that were neg for stroke or mass. Carotid US neg as well. Code(s): R20.0 - ANESTHESIA OF SKIN - Discharge Disposition: Home, Self-Care Condition: Stable Prescriptions: New Acyclovir 400 mg PO TID 10 Days #30 tablet Cefdinir 300 mg PO 12 9 Days #18 capsule Follow up with: LIZZETH OLGUIN [Primary Care Provider] - 1 Week
[2019-12-04 15:16] VITALS: BP 122/74; PULSE 90
[2019-12-05 12:25] LABS: ANA Pattern Interp Detail See Result Note:
[2019-12-05 14:25] LABS: West Nile Antibody IgG Negative (Negative); West Nile Antibody IgM Negative (Negative)
== END 2019-12-04 15:14 | disposition home or self-care (01) ==
LOC: MED SURG 11:16
PROVIDERS: ADMIT Family Medicine; ATTEND Family Medicine
DX: G03.0 Nonpyogenic meningitis (principal); G43.909 Migraine, unspecified, not intractable, without status migrainosus; R20.2 Paresthesia of skin; J32.9 Chronic sinusitis, unspecified; R20.0 Anesthesia of skin
CPT/HCPCS: 0064U; 36415; 70553; 80053; 81001; 82607; 82746; 82945; 83516; 83735; 84157; 84443; 85025; 85652; 86038; 86039; 86141; 86431; 86592; 86593; 86618; 86701; 86702; 86757; 86788; 86789; 87070; 87086; 87389; 87798; 89050; 89051; 93005; 93880; 94760; 95812; 62270; G0378; J0133; J0696; Q3014